=== PATIENT | female | born 1960 | race American Indian/Alaskan Native ===

== ENCOUNTER 2017-07-20 20:48 | Emergency (ER) | payer SELFPAY | END 2017-07-20 21:00 | disposition left against medical advice (07) | LOC: ED 20:48 | DX: S69.92XA Unspecified injury of left wrist, hand and finger(s), initial encounter (principal); X58.XXXA Exposure to other specified factors, initial encounter; Y93.9 Activity, unspecified; Y92.89 Other specified places as the place of occurrence of the external cause; Y99.9 Unspecified external cause status; Z53.21 Procedure and treatment not carried out due to patient leaving prior to being seen by health care provider ==

== ENCOUNTER 2018-02-14 07:46 | Outpatient (CLI) | payer BC ==
[2018-02-14] MEDS ORDERED: PROVENTIL IH ONE ×2 (08:45→08:52)
--- NOTE | 2018-02-16 10:03 | XRay Report ---
Chest 2 views: History: Chronic cough. Findings: One cardiomegaly. Trachea is midline. Linear densities right lower lobe probably related to scarring or discoid atelectasis. Normal CP angles. Impression: Linear densities right lower lobe suggestive scarring or discoid atelectasis.
--- NOTE | 2018-02-18 01:16 | Pulmonary Function Test ---
PULMONARY FUNCTION TEST PRIMARY CARE PHYSICIAN: Wayne Vargas MD SPIROMETRY: FVC 1.83 liters, which is 69% of the predicted. FEV1 is 1.53, which is 73% of predicted. FEV1/FVC ratio is 84. Flow volume loop FEF 25-75% is 1.67 liters per second, which is 78% of predicted. MVV is 73% of the predicted. Lung volumes, TLC is 3.75, which is 76%, 3.75 liters, which is 76% of predicted and ERV 0.21 liters, which is 25% of the predicted, and RV is 1.90, which is 102% of the predicted. DLCO is 78% of predicted. IMPRESSION: Mild restrictive ventilatory impairment as evidenced by decreasing TLC. JOB# [id number] TANVIR/RICHARD
== END 2018-02-14 07:47 | disposition home or self-care (01) ==
LOC: PF 07:46
PROVIDERS: ATTEND Internal Medicine
DX: I51.7 Cardiomegaly (principal); R05 Cough
CPT/HCPCS: 36600; 71046; 82803; 93005; 93010; 94060; 94640; 94726; 94727; 94729